=== PATIENT | male | born 1970 | race Caucasian/White ===

== ENCOUNTER 2016-07-28 06:03 | Day surgery (SDC) | END 2016-07-28 06:04 | disposition home or self-care (01) | CPT/HCPCS: 29881; 71010; A9270; J0690; J7120; J7613 ==

== ENCOUNTER 2017-02-14 15:13 | Emergency (ER) | payer MEDICAID ==
--- NOTE | 2017-02-14 16:20 | XRAY Preliminary Report ---
Exam: XR Forearm RT IMPRESSION: No acute disease. [facility] SITE ID: [id number]
--- NOTE | 2017-02-14 16:23 | XRAY Report ---
EXAM: RIGHT FOREARM RADIOGRAPHY EXAM DATE: 02/14/2017 04:03 PM. CLINICAL HISTORY: Trauma, pain. COMPARISON: None. TECHNIQUE: 2 views. FINDINGS: Bones: Tiny olecranon spur. No definite fracture or other bone lesion. Joints: Normal. No effusions or subluxations in the visualized wrist or elbow joints. Soft Tissues: Unremarkable. IMPRESSION: No acute disease. [facility] Referring Provider Line: [phone] SITE ID: [id number]
[2017-02-14] MEDS ORDERED: ACETAMINOPHEN 325 MG TABLET PO STA (16:58)
[2017-02-14] MEDS ORDERED: IBUPROFEN 400 MG TABLET PO STA (16:58)
[2017-02-14] MEDS ORDERED: ACETAMINOPHEN 325 MG TABLET PO ONE (17:04)
[2017-02-14] MEDS ORDERED: IBUPROFEN 400 MG TABLET PO ONE (17:04)
--- NOTE | 2017-02-14 17:14 | ED Physician Documentation ---
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 and swelling radial > ulnar no numbness or weakness occurred at home Review of Systems Musculoskeletal: reports: Extremity pain PD PAST MEDICAL HISTORY - Past Medical History Cardiovascular: Hypertension Respiratory: None Neuro: None Endocrine/Autoimmune: HyPOthyroidism GI: GERD : None HEENT: None Psych: None Musculoskeletal: None Derm: None - Past Surgical History Past Surgical History: Yes Ortho: ACL reconstruction - Present Medications Home Medications: Ambulatory Orders Medication Instructions Recorded Confirmed Chlorthalidone 25 mg PO DAILY 07/27/16 02/14/17 Levothyroxine [Synthroid] 25 mcg PO QDAC 07/27/16 02/14/17 Omeprazole 20 mg PO DAILY 07/27/16 02/14/17 Albuterol Sulfate [Proventil Hfa 1 - 2 puffs INH Q4H PRN 07/28/16 02/14/17 Inhaler] - Allergies Allergies/Adverse Reactions: Allergies Allergy/AdvReac Type Severity Reaction Status Date / Time No Known Drug Allergies Allergy Verified 02/14/17 16:34 - Social History Does the pt smoke?: Yes Smoking Status: Current every day smoker Does the pt drink ETOH?: No Does the pt have substance abuse?: No - Immunizations Immunizations are current?: No - POLST Patient has POLST: No PD ED PE NORMAL - Vitals Vital signs reviewed: Yes - Extremities Extremities: Other (R FA with swellign and TTP to distal radius region, MSV intact) Results - Vitals Vitals: Vital Signs - 24 hr 02/14/17 15:43 Temperature 36.6 C Heart Rate 85 Respiratory 18 Rate Blood Pressure 140/90 H O2 Saturation 99 Oxygen O2 Source Room air - Rads (name of study) FA Radiology: See rad report (neg) Departure - Departure Disposition: 01 Home, Self Care Clinical Impression: Crush injury arm Qualifiers: Encounter type: initial encounter Laterality: right Qualified Code(s): S47.1XXA - Crushing injury of right shoulder and upper arm, initial encounter Condition: Good Comments: The xray shows no fracture But you still have some crush injury to the muscles Recommend wearing the SHAWANDA and applying ice 20 min at a time and elevating to decrease the swelling Motrin and tylenol for the pain Wear the splint as needed for support and comfort And please follow up with your PMD to recheck your blood pressure Return if worse
[2017-02-14 17:33] VITALS: BP 149/100
== END 2017-02-14 18:59 | disposition home or self-care (01) ==
LOC: ED 15:13
DX: S57.81XA Crushing injury of right forearm, initial encounter (principal); W23.1XXA Caught, crushed, jammed, or pinched between stationary objects, initial encounter; I10 Essential (primary) hypertension; E03.9 Hypothyroidism, unspecified; K21.9 Gastro-esophageal reflux disease without esophagitis; F17.200 Nicotine dependence, unspecified, uncomplicated
CPT/HCPCS: 73090; 99283; A9270

== ENCOUNTER 2017-03-01 07:43 | Outpatient (CLI) | payer MEDICAID ==
[2017-03-01 11:03] LABS: HGB - HEMOGLOBIN 14.3 g/dL (14.0-18.0); MEAN CORPUSCULAR HEMOGLOBIN 30.6 pg (27.0-31.0); MEAN PLATELET VOLUME 9.4 fL (7.4-11.4); RED CELL DISTRIBUTION WIDTH 13.1 % (12.0-15.0); UNCORRECTED WHITE BLOOD COUNT 7.1 x10^3/uL; WHITE BLOOD COUNT 7.1 x10^3/uL (4.8-10.8)
[2017-03-01 11:05] LABS: BASOPHILS % (AUTO) 0.4 %; EOSINOPHILS # (AUTO) 0.2 10^3/uL (0.0-0.7); EOSINOPHILS % (AUTO) 2.3 %; HCT - HEMATOCRIT 42.2 % (42.0-52.0); LYMPHOCYTES # (AUTO) 2.7 10^3/uL (1.5-3.5); LYMPHOCYTES % (AUTO) 37.7 %; MONOCYTES # (AUTO) 0.5 10^3/uL (0.0-1.0); NEUTROPHILS # (AUTO) 3.7 10^3/uL (1.5-6.6); NEUTROPHILS % (AUTO) 52.6 %; RED BLOOD COUNT 4.69 10^6/uL (4.70-6.10)
[2017-03-01 11:20] LABS: ALBUMIN/GLOBULIN RATIO 1.2 (1.0-2.2); BILIRUBIN,TOTAL 0.6 mg/dL (0.2-1.0); BUN - BLOOD UREA NITROGEN 14 mg/dL (6-20); CALCIUM 8.8 mg/dL (8.5-10.3); CARBON DIOXIDE - CO2 24 mmol/L (21-32); CHLORIDE 108 mmol/L (101-111); CHOL/HDL RATIO 5.1 (<5.0); CHOLESTEROL 208 mg/dL; CREATININE 0.8 mg/dL (0.6-1.2); GFR - MDRD 104 (>89); GLUCOSE 156 mg/dL (70-100); HDL CHOLESTEROL 41 mg/dL; LDL/HDL RATIO 3.1 (<3.6); POTASSIUM 3.8 mmol/L (3.5-5.0); SODIUM 141 mmol/L (135-145); TOTAL PROTEIN 6.7 g/dL (6.7-8.2); TRIGLYCERIDES 202 mg/dL; VLDL CHOLESTEROL 40 mg/dL
[2017-03-01 11:48] LABS: THYROID STIMULATING HORMONE 2.13 uIU/mL (0.34-5.60)
== END 2017-03-01 07:44 | disposition home or self-care (01) ==
LOC: LAB.F 07:43
PROVIDERS: ATTEND Nurse Practitioner Family
DX: I10 Essential (primary) hypertension (principal); E78.5 Hyperlipidemia, unspecified; E03.8 Other specified hypothyroidism
CPT/HCPCS: 36415; 80050; 80061; 84439

== ENCOUNTER 2017-04-08 13:05 | Outpatient (CLI) | payer MEDICAID | END 2017-04-08 13:06 | disposition home or self-care (01) | LOC: RT 13:05 | PROVIDERS: ATTEND Nurse Practitioner Family | DX: R06.02 Shortness of breath (principal) | CPT/HCPCS: 94060 ==

== ENCOUNTER 2017-04-10 07:38 | Outpatient (CLI) | payer MEDICAID ==
[2017-04-10 14:02] LABS: BASOPHILS # (AUTO) 0.1 10^3/uL (0.0-0.1); BASOPHILS % (AUTO) 0.7 %; EOSINOPHILS # (AUTO) 0.2 10^3/uL (0.0-0.7); EOSINOPHILS % (AUTO) 1.7 %; HCT - HEMATOCRIT 43.6 % (42.0-52.0); HGB - HEMOGLOBIN 15.3 g/dL (14.0-18.0); LYMPHOCYTES # (AUTO) 3.7 10^3/uL (1.5-3.5); LYMPHOCYTES % (AUTO) 36.7 %; MEAN CORPUSCULAR HEMOGLOBIN 30.6 pg (27.0-31.0); MEAN CORPUSCULAR HGB CONC 35.1 g/dL (32.0-36.0); MEAN CORPUSCULAR VOLUME 87.2 fL (80.0-94.0); MEAN PLATELET VOLUME 9.3 fL (7.4-11.4); MONOCYTES # (AUTO) 0.8 10^3/uL (0.0-1.0); MONOCYTES % (AUTO) 7.5 %; NEUTROPHILS # (AUTO) 5.4 10^3/uL (1.5-6.6); NEUTROPHILS % (AUTO) 53.4 %; NUCLEATED RED BLOOD CELLS AUTO 0.1 /100WBC; UNCORRECTED WHITE BLOOD COUNT 10.1 x10^3/uL; WHITE BLOOD COUNT 10.1 x10^3/uL (4.8-10.8)
[2017-04-10 14:16] LABS: ALBUMIN/GLOBULIN RATIO 1.2 (1.0-2.2); BILIRUBIN,TOTAL 0.6 mg/dL (0.2-1.0); CALCIUM 9.5 mg/dL (8.5-10.3); CREATININE 0.9 mg/dL (0.6-1.2); HEMOGLOBIN A1C 1.24 g/dL; POTASSIUM 3.5 mmol/L (3.5-5.0); TOTAL PROTEIN 7.6 g/dL (6.7-8.2)
== END 2017-04-10 07:39 | disposition home or self-care (01) ==
LOC: LAB.F 07:38
PROVIDERS: ATTEND Nurse Practitioner Family
DX: Z01.818 Encounter for other preprocedural examination (principal); M25.561 Pain in right knee; I10 Essential (primary) hypertension
CPT/HCPCS: 36415; 80053; 83036; 85025

== ENCOUNTER 2017-04-12 10:56 | Outpatient (CLI) | payer MEDICAID | END 2017-04-12 10:57 | disposition home or self-care (01) | LOC: LAB.R 10:56 | PROVIDERS: ATTEND Nurse Practitioner Family | DX: Z01.818 Encounter for other preprocedural examination (principal) | CPT/HCPCS: 87081 ==

== ENCOUNTER 2017-04-12 11:04 | Outpatient (CLI) | payer MEDICAID | END 2017-04-12 11:05 | disposition home or self-care (01) | LOC: RT.S 11:04 | PROVIDERS: ATTEND Nurse Practitioner Family | DX: Z01.818 Encounter for other preprocedural examination (principal) | CPT/HCPCS: 87081; 93005 ==

== ENCOUNTER 2017-04-28 17:08 | Emergency (ER) | payer MEDICAID ==
[2017-04-28 17:21] VITALS: BP 113/79
[2017-04-28 17:38] LABS: BASOPHILS # (AUTO) 0.1 10^3/uL (0.0-0.1); BASOPHILS % (AUTO) 0.7 %; EOSINOPHILS # (AUTO) 0.1 10^3/uL (0.0-0.7); EOSINOPHILS % (AUTO) 0.7 %; LYMPHOCYTES # (AUTO) 3.5 10^3/uL (1.5-3.5); LYMPHOCYTES % (AUTO) 25.8 %; MEAN CORPUSCULAR HEMOGLOBIN 30.6 pg (27.0-31.0); MEAN CORPUSCULAR HGB CONC 35.1 g/dL (32.0-36.0); MEAN CORPUSCULAR VOLUME 87.2 fL (80.0-94.0); MEAN PLATELET VOLUME 8.1 fL (7.4-11.4); MONOCYTES # (AUTO) 1.2 10^3/uL (0.0-1.0); MONOCYTES % (AUTO) 8.7 %; NEUTROPHILS # (AUTO) 8.8 10^3/uL (1.5-6.6); NEUTROPHILS % (AUTO) 64.1 %; RED BLOOD COUNT 4.59 10^6/uL (4.70-6.10); RED CELL DISTRIBUTION WIDTH 12.4 % (12.0-15.0); UNCORRECTED WHITE BLOOD COUNT 13.8 x10^3/uL; WHITE BLOOD COUNT 13.8 x10^3/uL (4.8-10.8)
[2017-04-28 17:56] LABS: ALBUMIN/GLOBULIN RATIO 1.4 (1.0-2.2); BILIRUBIN,TOTAL 1.2 mg/dL (0.2-1.0); CALCIUM 9.2 mg/dL (8.5-10.3); CARBON DIOXIDE - CO2 25 mmol/L (21-32); CHLORIDE 92 mmol/L (101-111); CREATININE 2.9 mg/dL (0.6-1.2); GFR - MDRD 23 (>89); GLUCOSE 170 mg/dL (70-100); LIPASE 26 U/L (22-51); POTASSIUM 2.6 mmol/L (3.5-5.0); SALICYLATE < 6.0 mg/dL; SODIUM 135 mmol/L (135-145); TOTAL PROTEIN 7.8 g/dL (6.7-8.2)
[2017-04-28 18:01] LABS: ACETAMINOPHEN < 10 ug/mL (10-30)
[2017-04-28 18:19] LABS: BUN - BLOOD UREA NITROGEN 34 mg/dL (6-20)
[2017-04-28] MEDS ORDERED: SODIUM CHLORIDE 0.9% 1,000 ML IV ONE ×2 (18:30→18:49)
--- NOTE | 2017-04-28 18:36 | ED Physician Documentation ---
History of Present Illness - Stated complaint Stated Complaint: ingestion - Chief complaint Chief Complaint: General - History obtained from History obtained from: Patient - History of Present Illness Timing: Today, How many hours ago (2) Pain level max: 0 Pain level now: 0 - Additonal information Additional information: Patient is a 46-year-old male who states he was working underneath a car today when he had the antifreeze line break and spill over him. also ingested. States GI upset currently. Abd pain, nausea. States accidental. Not suicidal. Review of Systems Ten Systems: 10 systems reviewed and negative Constitutional: denies: Fever, Chills, Myalgias Ears: denies: Ear pain Nose: denies: Rhinorrhea / runny nose, Congestion GI: denies: Vomiting, Diarrhea, Hematemesis, Bloody / black stool Skin: denies: Rash Musculoskeletal: denies: Neck pain, Back pain Neurologic: denies: Focal weakness, Numbness, Headache Psychiatric: denies: Suicidal, Homicidal PD PAST MEDICAL HISTORY - Past Medical History Cardiovascular: Hypertension, High cholesterol Respiratory: Other Neuro: Peripheral neuropathy Endocrine/Autoimmune: Type 2 diabetes, HyPOthyroidism GI: GERD : None HEENT: None Psych: None Musculoskeletal: None Derm: None - Past Surgical History Past Surgical History: Yes Ortho: ACL reconstruction - Present Medications Home Medications: Ambulatory Orders Medication Instructions Recorded Confirmed Chlorthalidone 50 mg PO DAILY 07/27/16 04/21/17 Levothyroxine [Synthroid] 25 mcg PO DAILY 07/27/16 04/21/17 Omeprazole 20 mg PO DAILY 07/27/16 04/21/17 Albuterol Sulfate [Proventil Hfa 1 - 2 puffs INH Q4H PRN 07/28/16 04/21/17 Inhaler] Acetaminophen [Tylenol] 325 mg PO Q6H PRN 04/21/17 04/21/17 Atorvastatin Calcium 80 mg PO DAILY PM 04/21/17 04/21/17 Ibuprofen [Advil] 800 mg PO PRN 04/21/17 Lisinopril 5 mg PO DAILY 04/21/17 04/21/17 Metformin HCl 500 mg PO BID 04/21/17 04/21/17 Trazodone HCl 25 - 50 mg PO QPM PRN 04/21/17 04/21/17 - Allergies Allergies/Adverse Reactions: Allergies Allergy/AdvReac Type Severity Reaction Status Date / Time amlodipine AdvReac Unknown Verified 04/28/17 17:16 - Social History Does the pt smoke?: Yes Smoking Status: Light tobacco smoker Does the pt drink ETOH?: No Does the pt have substance abuse?: No - Immunizations Immunizations are current?: No - POLST Patient has POLST: No PD ED PE NORMAL - Vitals Vital signs reviewed: Yes - General General: Alert and oriented X 3, No acute distress, Well developed/nourished - HEENT HEENT: PERRL, Moist mucous membranes, Other (erythematous) - Neck Neck: Supple, no meningeal sign - Cardiac Cardiac: RRR - Respiratory Respiratory: Clear bilaterally - Abdomen Abdomen: Normal bowel sounds, Soft, Non tender, Non distended - Back Back: No spinal TTP - Derm Derm: Warm and dry - Neuro Neuro: Alert and oriented X 3 - Psych Psych: Normal mood, Normal affect Results - Vitals Vitals: Vital Signs - 24 hr 04/28/17 04/28/17 17:12 17:20 Temperature 36.4 C L Heart Rate 104 H 110 H Respiratory 22 16 Rate Blood Pressure 99/68 113/79 O2 Saturation 98 Oxygen O2 Source Room air - Labs Labs: Laboratory Tests 04/28/17 04/28/17 04/28/17 17:32 17:32 18:55 WBC 13.8 H RBC 4.59 L Hgb 14.0 Hct 40.0 L MCV 87.2 MCH 30.6 MCHC 35.1 RDW 12.4 Plt Count 379 MPV 8.1 Neut # 8.8 H Lymph # 3.5 [place] # 1.2 H Eos # 0.1 Baso # 0.1 Absolute Nucleated RBC 0.01 Nucleated RBC % 0.0 VBG pH VBG pCO2 VBG pO2 VBG HCO3 VBG Total CO2 VBG O2 Saturation VBG Base Excess Sodium 135 Potassium 2.6 L Chloride 92 L Carbon Dioxide 25 Anion Gap 18.0 H BUN 34 H Creatinine 2.9 H Estimated GFR (MDRD) 23 L Glucose 170 H Lactic Acid 1.2 Calcium 9.2 Total Bilirubin 1.2 H AST 74 H ALT 64 H Alkaline Phosphatase 62 Total Protein 7.8 Albumin 4.6 Globulin 3.2 Albumin/Globulin Ratio 1.4 Lipase 26 Salicylates < 6.0 Acetaminophen < 10 L Ethyl Alcohol < 5.0 04/28/17 18:55 WBC RBC Hgb Hct MCV MCH MCHC RDW Plt Count MPV Neut # Lymph # [place] # Eos # Baso # Absolute Nucleated RBC Nucleated RBC % VBG pH 7.425 H VBG pCO2 42.7 VBG pO2 56.2 H VBG HCO3 27.4 VBG Total CO2 28.7 VBG O2 Saturation 88.9 H VBG Base Excess 2.6 H Sodium Potassium Chloride Carbon Dioxide Anion Gap BUN Creatinine Estimated GFR (MDRD) Glucose Lactic Acid Calcium Total Bilirubin AST ALT Alkaline Phosphatase Total Protein Albumin Globulin Albumin/Globulin Ratio Lipase Salicylates Acetaminophen Ethyl Alcohol PD MEDICAL DECISION MAKING - ED course Complexity details: reviewed results, re-evaluated patient, considered differential, d/w patient, d/w family, d/w philatelic consultant ED course: Patient is a 46-year-old male with reported accidental ethylene glycol ingestion. Initial laboratory results reveal a metabolic acidosis with acute renal failure. Fomepizole is not available here. Discussed with [facility], Dr. kimble, emergency department graciously accepted in transfer at 1845. Jennifer from the transfer center confirms the bed. They do not recommend starting bicarb at this time. Patient is awake alert oriented. This document was made in part using voice recognition software. While efforts are made to proofread this document, sound alike and grammatical errors may occur. Departure - Departure Disposition: 02 Transfer Acute Care Hosp Clinical Impression: Metabolic acidosis Renal failure Qualifiers: Renal failure chronicity: acute Acute renal failure type: unspecified Qualified Code(s): N17.9 - Acute kidney failure, unspecified Ethylene glycol poisoning Qualifiers: Encounter type: initial encounter Injury intent: undetermined intent Qualified Code(s): T52.8X4A - Toxic effect of other organic solvents, undetermined, initial encounter Condition: Stable
[2017-04-28] MEDS ORDERED: POTASSIUM CHLOR 10 MEQ/100 ML 10 MEQ/100 ML BAG IV ONE ×3 (19:03→19:46)
[2017-04-28 19:06] LABS: VBG BASE EXCESS 2.6 mmol/L (-2 - +2); VBG OXYGEN SATURATION 88.9 % (60-80); VBG PH 7.425 (7.31-7.41); VBG TOTAL CO2 28.7 mmol/L (24-29)
[2017-04-28] MEDS ORDERED: PANTOPRAZOLE 40 MG VIAL IVP STA (19:22)
[2017-04-28] MEDS ORDERED: PANTOPRAZOLE 40 MG VIAL ONE (19:46)
== END 2017-04-28 20:00 | disposition short-term general hospital (02) ==
LOC: ED 17:08
DX: E87.2 Acidosis (principal); N17.9 Acute kidney failure, unspecified; T65.891A Toxic effect of other specified substances, accidental (unintentional), initial encounter; E11.42 Type 2 diabetes mellitus with diabetic polyneuropathy; I10 Essential (primary) hypertension; E03.9 Hypothyroidism, unspecified; E78.00 Pure hypercholesterolemia, unspecified; F17.200 Nicotine dependence, unspecified, uncomplicated
CPT/HCPCS: 36415; 80053; 80307; 80320; 80329; 82803; 83605; 83690; 83930; 85025; 96361; 96374; 96375; 99283; 99284; 99285

== ENCOUNTER 2017-07-31 09:26 | Emergency (ER) | payer MEDICAID ==
--- NOTE | 2017-07-31 09:58 | ED Physician Documentation ---
PD HPI NVD - Stated complaint Stated Complaint: VOMITING - Chief complaint Chief Complaint: Abd Pain - History obtained from History obtained from: Patient - History of Present Illness Timing - onset: How many days ago (few) Timing - duration: Days Timing - details: Gradual onset, Still present Associated symptoms: Loss of appetite. No: Fever, Abdominal pain, Near syncope / syncope, Weight loss Contributing factors: No: Sick contact, Bad food, Travel Worsened by: Eating Recently seen: Not recently seen (he had decided he wanted to be off his meds and stopped them/threw them out 2-3 months ago. Has not been on any since. Did not like the Metformin side effects. Other meds he was just "tired of taking them". Would like to resume them, except asking for substitute for the metformin.) Review of Systems Constitutional: reports: Myalgias, Fatigue. denies: Fever Nose: reports: Congestion. denies: Rhinorrhea / runny nose Throat: denies: Sore throat Cardiac: denies: Chest pain / pressure Respiratory: reports: Cough GI: reports: Nausea, Vomiting, Diarrhea (2-3 days). denies: Abdominal Pain Skin: denies: Rash Neurologic: reports: Generalized weakness. denies: Focal weakness, Numbness, Near syncope Psychiatric: reports: Depressed. denies: Suicidal, Anxiety, Insomnia Immunocompromised: denies: Immunocompromised PD PAST MEDICAL HISTORY - Past Medical History Cardiovascular: Hypertension, High cholesterol Respiratory: Other Neuro: Peripheral neuropathy Endocrine/Autoimmune: Type 2 diabetes, HyPOthyroidism GI: GERD : None HEENT: None Psych: None Musculoskeletal: None Derm: None - Past Surgical History Past Surgical History: Yes Ortho: ACL reconstruction - Present Medications Home Medications: Ambulatory Orders Medication Instructions Recorded Confirmed Chlorthalidone 50 mg PO DAILY 07/27/16 07/31/17 Omeprazole 20 mg PO DAILY 07/27/16 07/31/17 Acetaminophen [Tylenol] 325 mg PO Q6H PRN 04/21/17 07/31/17 Atorvastatin Calcium 80 mg PO DAILY PM 04/21/17 07/31/17 Ibuprofen [Advil] 800 mg PO PRN PRN 04/21/17 07/31/17 Metformin HCl 500 mg PO BID 04/21/17 07/31/17 Albuterol Sulfate [Proventil Hfa 1 - 2 puffs INH Q4H PRN #1 07/31/17 Inhaler] [email or web address] Chlorthalidone 25 mg PO DAILY #30 tablet 07/31/17 Cholecalciferol (Vitamin D3) 2,000 unit PO DAILY #30 capsule 07/31/17 [Vitamin D] Levothyroxine [Synthroid] 25 mcg PO DAILY #30 tablet 07/31/17 Lisinopril 5 mg PO DAILY #30 tablet 07/31/17 Omeprazole 20 mg PO DAILY #30 tablet. 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 He is lonely some as is staying away from the prior friends who are drug users. He does not get counseling nor have social/support groups. ) - Immunizations Immunizations are current?: No - POLST Patient has POLST: No PD ED PE NORMAL - Vitals Vital signs reviewed: Yes - General General: Alert and oriented X 3, Well developed/nourished - HEENT HEENT: PERRL, Ears normal, Pharynx benign. No: Moist mucous membranes - Neck Neck: Supple, no meningeal sign, No adenopathy - Cardiac Cardiac: RRR, No murmur - Respiratory Respiratory: Clear bilaterally - Abdomen Abdomen: Normal bowel sounds, Soft, Non tender, Non distended, No organomegaly - Male Male : Deferred - Rectal Rectal: Deferred - Back Back: No CVA TTP - Derm Derm: Normal color, Warm and dry - Extremities Extremities: No deformity, No tenderness to palpate, No edema, No calf tenderness / cord - Neuro Neuro: Alert and oriented X 3, No motor deficit, Normal speech - Psych Psych: Normal affect. No: Normal mood (somewhat depressed but denies suicidal ideation.) Results - Vitals Vitals: Oxygen O2 Source Room air - Labs Labs: Laboratory Tests 07/31/17 07/31/17 07/31/17 09:52 10:32 10:32 WBC 11.7 H RBC 5.61 Hgb 17.4 Hct 49.0 MCV 87.3 MCH 31.1 H MCHC 35.6 RDW 12.4 Plt Count 430 MPV 8.3 Neut # 6.9 H Lymph # 3.5 [place] # 1.1 H Eos # 0.1 Baso # 0.1 Absolute Nucleated RBC 0.01 Nucleated RBC % 0.1 Sodium 132 L Potassium 3.5 Chloride 93 L Carbon Dioxide 22 Anion Gap 17.0 H BUN 36 H Creatinine 1.7 H Estimated GFR (MDRD) 43 L Glucose 105 H POC Whole Bld Glucose 135 H Calcium 9.7 Magnesium 2.1 Total Bilirubin 0.7 AST 22 ALT 27 Alkaline Phosphatase 62 Total Protein 8.3 H Albumin 4.5 Globulin 3.8 Albumin/Globulin Ratio 1.2 Lipase 23 TSH Influenza A (Rapid) Influenza B (Rapid) Influenza Types A,B Ag 07/31/17 07/31/17 10:32 11:48 WBC RBC Hgb Hct MCV MCH MCHC RDW Plt Count MPV Neut # Lymph # [place] # Eos # Baso # Absolute Nucleated RBC Nucleated RBC % Sodium Potassium Chloride Carbon Dioxide Anion Gap BUN Creatinine Estimated GFR (MDRD) Glucose POC Whole Bld Glucose Calcium Magnesium Total Bilirubin AST ALT Alkaline Phosphatase Total Protein Albumin Globulin Albumin/Globulin Ratio Lipase TSH 3.25 Influenza A (Rapid) Negative Influenza B (Rapid) Negative Influenza Types A,B Ag - PD MEDICAL DECISION MAKING - ED course Complexity details: reviewed results, considered differential (sounds flu like and he is wanting to resume meds he had been off for 2-3 months. Will give Rx for them to bridge getting back to PMD. SW gave references for support groups. ) , d/w patient Departure - Departure Disposition: 01 Home, Self Care Clinical Impression: Vomiting Qualifiers: Vomiting type: unspecified Vomiting Intractability: non-intractable Nausea presence: with nausea Qualified Code(s): R11.2 - Nausea with vomiting, unspecified Hypertension Qualifiers: Hypertension type: unspecified Qualified Code(s): I10 - Essential (primary) hypertension Hypothyroidism Qualifiers: Hypothyroidism type: unspecified Qualified Code(s): E03.9 - Hypothyroidism, unspecified Condition: Stable Record reviewed to determine appropriate education?: Yes Prescriptions: Albuterol Sulfate [Proventil Hfa Inhaler] 1 - 2 puffs INH Q4H PRN #1 [email or web address] PRN Reason: Shortness Of Air/Wheezing Chlorthalidone 25 mg PO DAILY #30 tablet Cholecalciferol (Vitamin D3) [Vitamin D] 2,000 unit PO DAILY #30 capsule Levothyroxine [Synthroid] 25 mcg PO DAILY #30 tablet Lisinopril 5 mg PO DAILY #30 tablet Omeprazole 20 mg PO DAILY #30 tablet. Pioglitazone HCl 15 mg PO DAILY #30 tablet Trazodone HCl 25 mg PO QPM PRN #30 tablet PRN Reason: sleep Comments: Resume your prior medications. I get these from our database list of medications. Follow-up with group support and counseling regarding being off drugs. Good for you for not using any drugs and continue that. Drink lots of fluids. Some daily regular exercise. Also consider vitamin D is just a mild mood enhancer not antidepressant per se. Discharge Date/Time: 07/31/17 14:24
[2017-07-31] MEDS ORDERED: ONDANSETRON 4 MG/2 ML VIAL IVP STA (10:20)
[2017-07-31] MEDS ORDERED: MAG HYDROX/AL HYDROX/SIMETH 30 ML UDC PO STA (10:20)
[2017-07-31] MEDS ORDERED: FAMOTIDINE 20 MG/50 ML 50 ML IV ONE (10:20)
[2017-07-31] MEDS ORDERED: SODIUM CHLORIDE 0.9% 1,000 ML IV ONE (10:20)
[2017-07-31 10:37] LABS: BASOPHILS # (AUTO) 0.1 10^3/uL (0.0-0.1); BASOPHILS % (AUTO) 0.7 %; EOSINOPHILS # (AUTO) 0.1 10^3/uL (0.0-0.7); EOSINOPHILS % (AUTO) 1.2 %; HGB - HEMOGLOBIN 17.4 g/dL (14.0-18.0); LYMPHOCYTES # (AUTO) 3.5 10^3/uL (1.5-3.5); LYMPHOCYTES % (AUTO) 30.2 %; MEAN CORPUSCULAR HEMOGLOBIN 31.1 pg (27.0-31.0); MEAN CORPUSCULAR HGB CONC 35.6 g/dL (32.0-36.0); MEAN CORPUSCULAR VOLUME 87.3 fL (80.0-94.0); MEAN PLATELET VOLUME 8.3 fL (7.4-11.4); MONOCYTES # (AUTO) 1.1 10^3/uL (0.0-1.0); NEUTROPHILS # (AUTO) 6.9 10^3/uL (1.5-6.6); NEUTROPHILS % (AUTO) 58.9 %; PLT - PLATELET COUNT 430 10^3/uL (130-450); RED BLOOD COUNT 5.61 10^6/uL (4.70-6.10); RED CELL DISTRIBUTION WIDTH 12.4 % (12.0-15.0); WHITE BLOOD COUNT 11.7 x10^3/uL (4.8-10.8)
[2017-07-31 10:50] LABS: ALBUMIN 4.5 g/dL (3.2-5.5); ALBUMIN/GLOBULIN RATIO 1.2 (1.0-2.2); BILIRUBIN,TOTAL 0.7 mg/dL (0.2-1.0); CALCIUM 9.7 mg/dL (8.5-10.3); CREATININE 1.7 mg/dL (0.6-1.2); MAGNESIUM 2.1 mg/dL (1.7-2.8); TOTAL PROTEIN 8.3 g/dL (6.7-8.2)
[2017-07-31 11:56] VITALS: BP 132/94
== END 2017-07-31 14:24 | disposition home or self-care (01) ==
LOC: ED 09:26
DX: R11.2 Nausea with vomiting, unspecified (principal); I10 Essential (primary) hypertension; E03.9 Hypothyroidism, unspecified; E78.00 Pure hypercholesterolemia, unspecified; E11.42 Type 2 diabetes mellitus with diabetic polyneuropathy; F17.200 Nicotine dependence, unspecified, uncomplicated; Z79.84 Long term (current) use of oral hypoglycemic drugs
CPT/HCPCS: 36415; 80053; 83690; 83735; 84443; 85025; 87275; 87276; 96361; 96365; 96375; 99283; 99284; A9270

== ENCOUNTER 2017-08-22 14:47 | Emergency (ER) | payer OTHER, MEDICAID ==
[2017-08-22 14:58] VITALS: BP 146/111
--- NOTE | 2017-08-22 15:25 | ED Physician Documentation ---
PD HPI BACK INJURY - Stated complaint Stated Complaint: GLF-BACK PX - History obtained from History obtained from: Patient - History of Present Illness Location: Both, Lower Type of injury: Fall (he slipped at work and landed on the edge of a 2x12 plank. Struck lower back. Denies other injury.) Where injury occurred: Work Timing - onset: Today Timing - details: Abrupt onset Quality: Pain, Spasm, Sharp Worsened by: Moving, Palpating Associated symptoms: No: Fever, Weakness, Incontinent of urine Contributing factors: Work related. No: Anticoagulated, Prior back surgery Similar symptoms before: Has not had sx before Recently seen: Not recently seen Review of Systems Cardiac: denies: Chest pain / pressure, Palpitations Respiratory: denies: Dyspnea, Cough GI: denies: Abdominal Swelling, Nausea, Vomiting, Diarrhea : denies: Incontinent Neurologic: denies: Focal weakness, Numbness PD PAST MEDICAL HISTORY - Past Medical History Cardiovascular: Hypertension, High cholesterol Respiratory: Other Neuro: Peripheral neuropathy Endocrine/Autoimmune: Type 2 diabetes, HyPOthyroidism GI: GERD : None HEENT: None Psych: None Musculoskeletal: None Derm: None - Past Surgical History Past Surgical History: Yes Ortho: ACL reconstruction - Present Medications Home Medications: Ambulatory Orders Medication Instructions Recorded Confirmed Acetaminophen [Tylenol] 325 mg PO Q6H PRN 04/21/17 08/22/17 Ibuprofen [Advil] 800 mg PO PRN PRN 04/21/17 08/22/17 Metformin HCl 500 mg PO BID 04/21/17 08/22/17 Albuterol Sulfate [Proventil Hfa 1 - 2 puffs INH Q4H PRN #1 07/31/17 08/22/17 Inhaler] hfa.[email or web address] Levothyroxine [Synthroid] 25 mcg PO DAILY #30 tablet 07/31/17 08/22/17 Lisinopril 5 mg PO DAILY #30 tablet 07/31/17 08/22/17 Omeprazole 20 mg PO DAILY #30 tablet. 07/31/17 08/22/17 Dexamethasone [Decadron] 4 mg PO DAILY #5 tablet 08/22/17 HYDROcod/ACETAM 5/325 [[place] 5/325] 1 tab PO Q6H PRN #15 tablet 08/22/17 Methocarbamol [Robaxin] 500 mg PO Q6H PRN #25 tablet 08/22/17 - Allergies Allergies/Adverse Reactions: Allergies Allergy/AdvReac Type Severity Reaction Status Date / Time amlodipine AdvReac Cramps Verified 08/22/17 15:25 - Social History Does the pt smoke?: Yes Smoking Status: Current every day smoker Does the pt drink ETOH?: No Does the pt have substance abuse?: No - Immunizations Immunizations are current?: No - POLST Patient has POLST: No PD ED PE NORMAL - Vitals Vital signs reviewed: Yes - General General: Alert and oriented X 3, No acute distress (but is guarding ROM of the low back. ), Well developed/nourished - HEENT HEENT: Atraumatic - Neck Neck: Supple, no meningeal sign - Cardiac Cardiac: RRR, No murmur - Respiratory Respiratory: Clear bilaterally - Abdomen Abdomen: Normal bowel sounds, Soft, Non tender, Non distended - Rectal Rectal: Deferred - Back Back: No CVA TTP, No spinal TTP (tender in adjacent muscles of lumbar area. ) - Derm Derm: Normal color, Warm and dry - Extremities Extremities: No tenderness to palpate, Normal ROM s pain - Neuro Neuro: Alert and oriented X 3, No motor deficit, No sensory deficit, Normal speech, Other (2+ DTRs at knees) Eye Opening: Spontaneous Motor: Obeys Commands Verbal: Oriented GCS Score: 15 - Psych Psych: Normal mood Results - Vitals Vitals: Oxygen O2 Source Room air - Rads (name of study) lumbar xray Radiology: Prelim report reviewed, EMP read contemporaneously (no fractures. some calcifications of ligaments. ) PD MEDICAL DECISION MAKING - ED course Complexity details: reviewed results, considered differential (contusion without fractures), d/w patient Departure - Departure Disposition: 01 Home, Self Care Clinical Impression: Fall from slip, trip, or stumble Qualifiers: Encounter type: initial encounter Qualified Code(s): W01.0XXA - Fall on same level from slipping, tripping and stumbling without subsequent striking against object, initial encounter Contusion of lower back Qualifiers: Encounter type: initial encounter Qualified Code(s): S30.0XXA - Contusion of lower back and pelvis, initial encounter Condition: Stable Record reviewed to determine appropriate education?: Yes Instructions: ED Contusion Back Follow-Up: Araseli Cortes ARNP [Primary Care Provider] - Prescriptions: Dexamethasone [Decadron] 4 mg PO DAILY #5 tablet HYDROcod/ACETAM 5/325 [[place] 5/325] 1 tab PO Q6H PRN #15 tablet PRN Reason: Pain Methocarbamol [Robaxin] 500 mg PO Q6H PRN #25 tablet PRN Reason: Spasms Comments: Heat for the back to reduce spasming. Gentle range of motion. He can use Decadron anti-inflammatory which will not affect her kidney function. Tylenol if needed for pains. Add methocarbamol for spasms and stiffness and hydrocodone for pain. Off work for couple of days and then progressive activity after that as able. Forms: Activity restrictions Discharge Date/Time: 08/22/17 16:27
[2017-08-22] MEDS ORDERED: IBUPROFEN 600 MG TABLET PO STA (15:51)
[2017-08-22] MEDS ORDERED: ACETAMINOPHEN 325 MG TABLET PO STA (15:51)
--- NOTE | 2017-08-22 16:36 | XRAY Preliminary Report ---
Exam: XR LUMBAR SPINE 2 VIEW IMPRESSION: 1. No acute bony abnormality. 2. Moderate amount of diffuse idiopathic skeletal hyperostosis thoracolumbar spine. 3. Old mild wedging thoracolumbar junction. 4. Multilevel [id number]-[id number] degenerative changes greatest at L5-S1. [facility] SITE ID: [id number]
--- NOTE | 2017-08-22 16:42 | XRAY Report ---
EXAM: LUMBOSACRAL SPINE RADIOGRAPHY EXAM DATE: 08/22/2017 04:10 PM. CLINICAL HISTORY: Fall at work, struck lumbar area onto board edge. Back pain. COMPARISONS: None. TECHNIQUE: 3 views. FINDINGS: Alignment: Normal. No spondylolisthesis or scoliosis. Bones: Five [id number] lumbar vertebral bodies are present. Old mild anterior wedging T11, T12 and L1. Trabecular and cortical patterns are intact. Disks: Large confluent dystrophic calcifications extending anteriorly off the endplates L2 to L5. Similar amount of diffuse idiopathic skeletal hyperostosis evident in the inferior third of the thora cic spine. Moderate narrowing of the L5-S1 disk space. Mild narrowing of the rest of the disk spaces. Facets: Moderate degenerative changes L5-S1 facets bilaterally. Sacroiliac Joints: Unremarkable. Soft Tissues: Normal. The visualized bowel gas pattern is normal. IMPRESSION: 1. No acute bony abnormality. 2. Moderate amount of diffuse idiopathic skeletal hyperostosis thoracolumbar spine. 3. Old mild wedging thoracolumbar junction. 4. Multilevel [id number]-[id number] degenerative changes greatest at L5-S1. [facility] Referring Provider Line: [phone] SITE ID: [id number]
== END 2017-08-22 16:27 | disposition home or self-care (01) ==
LOC: ED 14:47
DX: S30.0XXA Contusion of lower back and pelvis, initial encounter (principal); W01.198A Fall on same level from slipping, tripping and stumbling with subsequent striking against other object, initial encounter; Y99.0 Civilian activity done for income or pay; I10 Essential (primary) hypertension; E03.9 Hypothyroidism, unspecified; E11.42 Type 2 diabetes mellitus with diabetic polyneuropathy; F17.200 Nicotine dependence, unspecified, uncomplicated; Z79.84 Long term (current) use of oral hypoglycemic drugs
CPT/HCPCS: 1040M; 72100; 99283; A9270

== ENCOUNTER 2017-10-19 07:40 | Outpatient (CLI) | payer MEDICAID | END 2017-10-19 07:41 | disposition critical access hospital (66) | LOC: EMS 07:40 | PROVIDERS: ATTEND Surgery | DX: R42 Dizziness and giddiness (principal) | CPT/HCPCS: A0425; A0427 ==

== ENCOUNTER 2017-10-19 08:10 | Emergency (ER) | payer MEDICAID ==
--- NOTE | 2017-10-19 08:18 | ED Physician Documentation ---
History of Present Illness - Stated complaint Stated Complaint: SOA - Chief complaint Chief Complaint: Resp - Additonal information Additional information: hx from pt and EMS 47 male has DM and COPD also hx renal failure 2/2 drug use but not using anymore was fine yesterday awoke this AM at 7 and felt weak all over near syncope with SOA no CP or palp no abd pain back pain called 911 given a newb and feels better prehospital EKG showed no acute ischemia pt also notes recent ella leg swelling no travel smokes Review of Systems Constitutional: denies: Fever, Chills Cardiac: denies: Chest pain / pressure, Palpitations Respiratory: reports: Dyspnea. denies: Cough GI: denies: Abdominal Pain Musculoskeletal: reports: Extremity swelling. denies: Back pain Endocrine: denies: Easy bruising / bleeding Immunocompromised: denies: Immunocompromised PD PAST MEDICAL HISTORY - Past Medical History Cardiovascular: Hypertension, High cholesterol Respiratory: Other Neuro: Peripheral neuropathy Endocrine/Autoimmune: Type 2 diabetes, HyPOthyroidism GI: GERD : None HEENT: None Psych: None Musculoskeletal: None Derm: None - Past Surgical History Past Surgical History: Yes Ortho: ACL reconstruction - Present Medications Home Medications: Ambulatory Orders Medication Instructions Recorded Confirmed Acetaminophen [Tylenol] 325 mg PO Q6H PRN 04/21/17 08/22/17 Ibuprofen [Advil] 800 mg PO PRN PRN 04/21/17 08/22/17 Metformin HCl 500 mg PO BID 04/21/17 08/22/17 Albuterol Sulfate [Proventil Hfa 1 - 2 puffs INH Q4H PRN #1 07/31/17 08/22/17 Inhaler] hfa.aer.ad Levothyroxine [Synthroid] 25 mcg PO DAILY #30 tablet 07/31/17 08/22/17 Lisinopril 5 mg PO DAILY #30 tablet 07/31/17 08/22/17 Omeprazole 20 mg PO DAILY #30 tablet. 07/31/17 08/22/17 Dexamethasone [Decadron] 4 mg PO DAILY #5 tablet 08/22/17 HYDROcod/ACETAM 5/325 [[place] 5/325] 1 tab PO Q6H PRN #15 tablet 08/22/17 Methocarbamol [Robaxin] 500 mg PO Q6H PRN #25 tablet 08/22/17 - Allergies Allergies/Adverse Reactions: Allergies Allergy/AdvReac Type Severity Reaction Status Date / Time amlodipine AdvReac Cramps Verified 08/22/17 15:25 - Social History Does the pt smoke?: Yes Smoking Status: Current every day smoker Does the pt drink ETOH?: No Does the pt have substance abuse?: No - Immunizations Immunizations are current?: No - POLST Patient has POLST: No PD ED PE NORMAL - Vitals Vital signs reviewed: Yes - General General: Alert and oriented X 3 - HEENT HEENT: PERRL - Neck Neck: Supple, no meningeal sign - Cardiac Cardiac: RRR - Respiratory Respiratory: No respiratory distress, Clear bilaterally - Derm Derm: Normal color - Extremities Extremities: No tenderness to palpate, Other (mimnimal symm edema) - Neuro Neuro: Alert and oriented X 3 Eye Opening: Spontaneous Motor: Obeys Commands Verbal: Oriented GCS Score: 15 Results - Vitals Vitals: Vital Signs - 24 hr 10/19/17 08:12 Temperature 36.5 C Heart Rate 90 Respiratory 18 Rate Blood Pressure 140/94 H O2 Saturation 97 Oxygen O2 Source Room air - EKG (time done) 0814 Rate: Rate (enter#) Rhythm: NSR [place]: Normal Intervals: Normal MT QRS: Normal Ischemia: Other (isolated Q in III, concave ST elev precordial lead c/w repol) - Labs Labs: Laboratory Tests 10/19/17 10/19/17 10/19/17 08:34 08:34 08:34 WBC 10.0 RBC 4.87 Hgb 14.9 Hct 43.5 MCV 89.3 MCH 30.6 MCHC 34.2 RDW 13.4 Plt Count 343 MPV 8.1 Neut # 6.4 Lymph # 2.4 Bibb # 0.9 Eos # 0.1 Baso # 0.1 Absolute Nucleated RBC 0.00 Nucleated RBC % 0.0 D-Dimer Sodium 133 L Potassium 4.0 Chloride 103 Carbon Dioxide 24 Anion Gap 6.0 BUN 15 Creatinine 0.8 Estimated GFR (MDRD) 103 Glucose 148 H Calcium 8.9 Troponin I < 0.04 B-Natriuretic Peptide 10/19/17 10/19/17 08:34 08:34 WBC RBC Hgb Hct MCV MCH MCHC RDW Plt Count MPV Neut # Lymph # Bibb # Eos # Baso # Absolute Nucleated RBC Nucleated RBC % D-Dimer < 200.0 L Sodium Potassium Chloride Carbon Dioxide Anion Gap BUN Creatinine Estimated GFR (MDRD) Glucose Calcium Troponin I B-Natriuretic Peptide 20 - Rads (name of study) CXR Radiology: See rad report (NACPD) PD MEDICAL DECISION MAKING - ED course ED course: soa and weak.near syncope that got better with neb en route feels fine in ED EKG s ischemia and trop X 1 neg - no CP etc so do not feels needs to stay for serial trops neg BNP and no CHF on CXR nl renal fxn now no pna will dc Departure - Departure Disposition: 01 Home, Self Care Clinical Impression: Dyspnea Qualifiers: Dyspnea type: unspecified Qualified Code(s): R06.00 - Dyspnea, unspecified Condition: Good Instructions: ED Dyspnea Shortness of Breath Comments: All your tests came back fine The xray did not show pneumonia, a collapsed lung or congestive heart failure The EKG and blood work do not suggest a heart problem Your not anemic and your kidney function is fine. Since you got better with the nebulizer treatment and feel fine now, it is OK for you to go home Please follow up with your PMD as needed Return to the ED if worse Forms: Activity restrictions
[2017-10-19 08:41] LABS: BASOPHILS # (AUTO) 0.1 10^3/uL (0.0-0.1); BASOPHILS % (AUTO) 0.8 %; EOSINOPHILS # (AUTO) 0.1 10^3/uL (0.0-0.7); EOSINOPHILS % (AUTO) 1.3 %; HGB - HEMOGLOBIN 14.9 g/dL (14.0-18.0); LYMPHOCYTES # (AUTO) 2.4 10^3/uL (1.5-3.5); LYMPHOCYTES % (AUTO) 24.3 %; MEAN CORPUSCULAR HEMOGLOBIN 30.6 pg (27.0-31.0); MEAN CORPUSCULAR HGB CONC 34.2 g/dL (32.0-36.0); MEAN CORPUSCULAR VOLUME 89.3 fL (80.0-94.0); MEAN PLATELET VOLUME 8.1 fL (7.4-11.4); MONOCYTES # (AUTO) 0.9 10^3/uL (0.0-1.0); MONOCYTES % (AUTO) 8.9 %; NEUTROPHILS # (AUTO) 6.4 10^3/uL (1.5-6.6); NEUTROPHILS % (AUTO) 64.7 %; PLT - PLATELET COUNT 343 10^3/uL (130-450); RED BLOOD COUNT 4.87 10^6/uL (4.70-6.10); RED CELL DISTRIBUTION WIDTH 13.4 % (12.0-15.0)
--- NOTE | 2017-10-19 08:43 | XRAY Report ---
EXAM: CHEST RADIOGRAPHY EXAM DATE: 10/19/2017 08:29 AM. CLINICAL HISTORY: SOA. Dizziness. COMPARISON: 07/28/2016. TECHNIQUE: 2 views. FINDINGS: Lungs/Pleura: No focal opacities evident. No pleural effusion. No pneumothorax. Normal volumes. Mediastinum: Heart and mediastinal contours are unremarkable. Other: There is borderline anterior compression fracture in the T11. IMPRESSION: Negative 2-view chest radiography. [facility] Referring Provider Line: [phone] SITE ID: [id number]
--- NOTE | 2017-10-19 08:43 | XRAY Preliminary Report ---
Exam: XR CHEST 2 VIEW X-RAY IMPRESSION: Negative 2-view chest radiography. [facility] SITE ID: [id number]
[2017-10-19 08:54] LABS: CALCIUM 8.9 mg/dL (8.5-10.3); CREATININE 0.8 mg/dL (0.6-1.2)
[2017-10-19 09:37] VITALS: BP 150/108
== END 2017-10-19 09:35 | disposition home or self-care (01) ==
LOC: EDUNIT# → ED 08:10
DX: R06.00 Dyspnea, unspecified (principal); R94.31 Abnormal electrocardiogram [ECG] [EKG]; I10 Essential (primary) hypertension; E11.42 Type 2 diabetes mellitus with diabetic polyneuropathy; E78.00 Pure hypercholesterolemia, unspecified; E03.9 Hypothyroidism, unspecified; F17.200 Nicotine dependence, unspecified, uncomplicated; Z79.84 Long term (current) use of oral hypoglycemic drugs
CPT/HCPCS: 36415; 71046; 80048; 83880; 84484; 85025; 85379; 93005; 99284

== ENCOUNTER 2018-05-14 02:57 | Emergency (ER) | payer MEDICAID ==
[2018-05-14 03:06] VITALS: BP 178/124
--- NOTE | 2018-05-14 03:09 | ED Physician Documentation ---
PD HPI SKIN - Stated complaint Stated Complaint: FACE LAC - Chief complaint Chief Complaint: Wound - History obtained from History obtained from: Patient - History of Present Illness Timing - onset: How many days ago (4) Timing - duration: Days (4) Timing - details: Gradual onset Pain level now: 4 Location: Face Quality / character: Painful, Raised, Draining Recently seen: Not recently seen - Additional information Additional information: cut himself shaving 4 days ago (right jawline) and has had gradually increasing pain and swelling in this area since then. He was able to express pus from this lesion yesterday and says there appeared to be an ingrown hair that was expressed with the pus. Review of Systems Constitutional: denies: Fever Skin: reports: Rash PD PAST MEDICAL HISTORY - Past Medical History Cardiovascular: Hypertension, High cholesterol Respiratory: Other Endocrine/Autoimmune: Type 2 diabetes, HyPOthyroidism GI: GERD : None HEENT: None Psych: None Musculoskeletal: None Derm: None - Past Surgical History Past Surgical History: Yes Ortho: ACL reconstruction - Present Medications Home Medications: Ambulatory Orders Medication Instructions Recorded Confirmed Acetaminophen [Tylenol] 325 mg PO Q6H PRN 04/21/17 08/22/17 Ibuprofen [Advil] 800 mg PO PRN PRN 04/21/17 08/22/17 Metformin HCl 500 mg PO BID 04/21/17 08/22/17 Albuterol Sulfate [Proventil Hfa 1 - 2 puffs INH Q4H PRN #1 07/31/17 08/22/17 Inhaler] hfa.aer.ad Levothyroxine [Synthroid] 25 mcg PO DAILY #30 tablet 07/31/17 08/22/17 Lisinopril 5 mg PO DAILY #30 tablet 07/31/17 08/22/17 Omeprazole 20 mg PO DAILY #30 tablet. 07/31/17 08/22/17 Dexamethasone [Decadron] 4 mg PO DAILY #5 tablet 08/22/17 HYDROcod/ACETAM 5/325 [[place] 5/325] 1 tab PO Q6H PRN #15 tablet 08/22/17 Methocarbamol [Robaxin] 500 mg PO Q6H PRN #25 tablet 08/22/17 Cephalexin [Keflex] 500 mg PO Q6HR #39 capsule 05/14/18 Sulfamethox/Trimeth 800/160 1 each PO BID #19 tablet 05/14/18 [Bactrim Ds 800/160] - Allergies Allergies/Adverse Reactions: Allergies Allergy/AdvReac Type Severity Reaction Status Date / Time amlodipine AdvReac Cramps Verified 05/14/18 03:06 - Social History Does the pt smoke?: Yes Smoking Status: Current every day smoker Does the pt drink ETOH?: No Does the pt have substance abuse?: No - Immunizations Immunizations are current?: No - POLST Patient has POLST: No PD ED PE NORMAL - Vitals Vital signs reviewed: Yes - General General: Alert and oriented X 3, No acute distress, Well developed/nourished PD ED PE EXPANDED - HEENT HEENT Visual: 1 - swelling (firm nodularity but no fluctuance or discharge; confluent erythema), tenderness Results - Vitals Vitals: Vital Signs - 24 hr 05/14/18 03:03 Temperature 36.2 C L Heart Rate 104 H Respiratory 18 Rate Blood Pressure 178/124 H O2 Saturation 97 Oxygen O2 Source Room air PD MEDICAL DECISION MAKING - ED course Complexity details: considered differential, d/w patient Departure - Departure Disposition: 01 Home, Self Care Clinical Impression: Cellulitis, face Condition: Good Instructions: ED Cellulitis Facial Follow-Up: Araseli Cortes ARNP [Primary Care Provider] - (5-7 days for recheck of the infection) Prescriptions: Cephalexin [Keflex] 500 mg PO Q6HR #39 capsule Sulfamethox/Trimeth 800/160 [Bactrim Ds 800/160] 1 each PO BID #19 tablet Discharge Date/Time: 05/14/18 03:38
[2018-05-14] MEDS ORDERED: SULFAMETH/TRIMETH DS 800/160 MG TABLET PO STA (03:30)
[2018-05-14] MEDS ORDERED: cephALEXin 250 MG CAPSULE PO STA (03:31)
== END 2018-05-14 03:38 | disposition home or self-care (01) ==
LOC: ED 02:57
DX: L03.211 Cellulitis of face (principal); I10 Essential (primary) hypertension; E78.00 Pure hypercholesterolemia, unspecified; E03.9 Hypothyroidism, unspecified; F17.200 Nicotine dependence, unspecified, uncomplicated; E11.9 Type 2 diabetes mellitus without complications
CPT/HCPCS: 99283; A9270

== ENCOUNTER 2018-07-01 22:01 | Emergency (ER) | payer MEDICAID ==
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
[2018-07-01 22:21] LABS: BASOPHILS # (AUTO) 0.1 10^3/uL (0.0-0.1); BASOPHILS % (AUTO) 0.7 %; EOSINOPHILS # (AUTO) 0.2 10^3/uL (0.0-0.7); EOSINOPHILS % (AUTO) 1.4 %; LYMPHOCYTES # (AUTO) 2.9 10^3/uL (1.5-3.5); LYMPHOCYTES % (AUTO) 22.5 %; MEAN CORPUSCULAR HEMOGLOBIN 30.7 pg (27.0-31.0); MEAN CORPUSCULAR HGB CONC 34.3 g/dL (32.0-36.0); MEAN CORPUSCULAR VOLUME 89.5 fL (80.0-94.0); MONOCYTES # (AUTO) 1.1 10^3/uL (0.0-1.0); MONOCYTES % (AUTO) 8.1 %; NEUTROPHILS # (AUTO) 8.8 10^3/uL (1.5-6.6); NEUTROPHILS % (AUTO) 67.3 %; PLT - PLATELET COUNT 372 10^3/uL (130-450); RED BLOOD COUNT 4.89 10^6/uL (4.70-6.10); RED CELL DISTRIBUTION WIDTH 13.1 % (12.0-15.0); WHITE BLOOD COUNT 13.1 x10^3/uL (4.8-10.8)
[2018-07-01] MEDS ORDERED: IOVERSOL 320 100 ML VIAL IVP ONE ×2 (22:31→23:37)
[2018-07-01 22:35] LABS: ALBUMIN 4.1 g/dL (3.2-5.5); ALBUMIN/GLOBULIN RATIO 1.2 (1.0-2.2); BILIRUBIN,TOTAL 0.5 mg/dL (0.2-1.0); CALCIUM 9.4 mg/dL (8.5-10.3); CREATININE 1.3 mg/dL (0.6-1.2); TOTAL PROTEIN 7.6 g/dL (6.7-8.2)
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
[2018-07-02 00:31] LABS: BILIRUBIN,URINE NEGATIVE (NEGATIVE); GLUCOSE, URINE (UA) 100 mg/dL (NEGATIVE); KETONES,URINE (UA) NEGATIVE (NEGATIVE); LEUKOCYTE ESTERASE, URINE NEGATIVE (NEGATIVE); NITRITE,URINE NEGATIVE (NEGATIVE); OCCULT BLOOD,URINE NEGATIVE (NEGATIVE); PH,URINE 6.5 PH (5.0-7.5); PROTEIN,URINE NEGATIVE (NEGATIVE); UROBILINOGEN,URINE 0.2 (NORMAL) E.U./dL (NORMAL)
[2018-07-02 00:33] LABS: CLARITY,URINE CLEAR (CLEAR)
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
[2018-07-02] MEDS ORDERED: oxyCODONE 5 MG TABLET PO STA (00:42)
[2018-07-02] MEDS ORDERED: oxyCODONE/ACET 5/325 Prepack 4 PO STA (00:49)
[2018-07-02 01:07] VITALS: BP 174/113
== END 2018-07-02 01:30 | disposition home or self-care (01) ==
LOC: ED 22:01
DX: S22.32XA Fracture of one rib, left side, initial encounter for closed fracture (principal); S60.221A Contusion of right hand, initial encounter; V57.0XXA Driver of pick-up truck or van injured in collision with fixed or stationary object in nontraffic accident, initial encounter; Y92.410 Unspecified street and highway as the place of occurrence of the external cause; I10 Essential (primary) hypertension; E11.9 Type 2 diabetes mellitus without complications; Z79.84 Long term (current) use of oral hypoglycemic drugs; F17.200 Nicotine dependence, unspecified, uncomplicated
CPT/HCPCS: 36415; 70450; 71101; 72132; 74177; 80053; 81003; 83690; 85025; 99284; 99285; A9270; Q9967; 81001; 87086

== ENCOUNTER 2018-08-16 18:23 | Emergency (ER) | payer MEDICAID ==
[2018-08-16] MEDS ORDERED: HYDROmorphone 1 MG/ML CARPUJECT IVP STA ×2 (18:27→20:27)
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
[2018-08-16] MEDS: SODIUM CHLORIDE 0.9% 1,000 ML IV ONE ×2 (18:32→18:39)
[2018-08-16] MEDS ORDERED: IOVERSOL 320 100 ML VIAL IVP ONE ×2 (18:33→19:45)
[2018-08-16 18:44] LABS: BASOPHILS # (AUTO) 0.1 10^3/uL (0.0-0.1); BASOPHILS % (AUTO) 1.1 %; EOSINOPHILS # (AUTO) 0.2 10^3/uL (0.0-0.7); EOSINOPHILS % (AUTO) 1.4 %; HGB - HEMOGLOBIN 14.8 g/dL (14.0-18.0); LYMPHOCYTES # (AUTO) 4.1 10^3/uL (1.5-3.5); LYMPHOCYTES % (AUTO) 37.8 %; MEAN CORPUSCULAR HEMOGLOBIN 30.5 pg (27.0-31.0); MEAN CORPUSCULAR HGB CONC 34.2 g/dL (32.0-36.0); MEAN CORPUSCULAR VOLUME 89.1 fL (80.0-94.0); MEAN PLATELET VOLUME 8.1 fL (7.4-11.4); MONOCYTES # (AUTO) 0.9 10^3/uL (0.0-1.0); MONOCYTES % (AUTO) 8.7 %; NEUTROPHILS # (AUTO) 5.5 10^3/uL (1.5-6.6); PLT - PLATELET COUNT 384 10^3/uL (130-450); RED BLOOD COUNT 4.84 10^6/uL (4.70-6.10); RED CELL DISTRIBUTION WIDTH 13.1 % (12.0-15.0); WHITE BLOOD COUNT 10.7 x10^3/uL (4.8-10.8)
[2018-08-16 18:46] LABS: ALKALINE PHOSPHATASE 85 IU/L (42-121); ALT ALANINE AMINOTRANSFERASE 50 IU/L (10-60); AST ASPARTATE AMINOTRANSFERASE 37 IU/L (10-42); BILIRUBIN,TOTAL 0.5 mg/dL (0.2-1.0); BUN - BLOOD UREA NITROGEN 17 mg/dL (6-20); CALCIUM 9.7 mg/dL (8.5-10.3); CARBON DIOXIDE - CO2 23 mmol/L (21-32); CHLORIDE 101 mmol/L (101-111); CREATININE 1.2 mg/dL (0.6-1.2); GFR - MDRD 65 (>89); GLUCOSE 195 mg/dL (70-100); LIPASE 33 U/L (22-51); SODIUM 137 mmol/L (135-145); TOTAL PROTEIN 7.9 g/dL (6.7-8.2)
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
--- NOTE | 2018-08-16 19:59 | CT Report ---
Reason: calcaneal frx Procedure Date: 08/16/2018 Accession Number: [id number] / [id number] Procedure: CT - Lower Extremity Left W/O CPT Code: FULL RESULT: EXAM: LEFT ANKLE/HINDFOOT CT WITHOUT CONTRAST EXAM DATE: 08/16/2018 07:43 PM. CLINICAL HISTORY: Calcaneal frx. COMPARISON: 08/16/2018 left ankle radiographs. TECHNIQUE: Thin-section axial images were acquired of the ankle/hindfoot without contrast. Post-processing: Coronal and sagittal reformats. Other: None. In accordance with CT protocol optimization, one or more of the following dose reduction techniques were utilized for this exam: automated exposure control, adjustment of mA and/or KV based on patient size, or use of iterative reconstructive technique. FINDINGS: Bones: Extensively comminuted fracture of the calcaneus involving the calcaneal tuberosity, with extension through the posterior and middle subtalar articulations, the plantar surface of the calcaneus, anteriorly through to the articulation with the cuboid, and through the peroneal tubercle. There is also a minimally displaced fracture of the anterior margin of the tibial plafond. No additional fractures. Small Achilles insertional enthesophyte and plantar calcaneal heel spur. Joints: Multiple punctate intra-articular bodies within the tibiotalar and subtalar joints posteriorly. Musculature: Normal. No fatty atrophy. Other: No tendon entrapment. Soft tissue swelling at the plantar aspect of the heel. IMPRESSION: 1. Extensively comminuted fracture of the calcaneus. 2. Minimally displaced fracture of the anterior margin of the tibial plafond. RADIA
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
[2018-08-16 20:14] LABS: BILIRUBIN,URINE NEGATIVE (NEGATIVE); GLUCOSE, URINE (UA) 100 mg/dL (NEGATIVE); KETONES,URINE (UA) NEGATIVE (NEGATIVE); LEUKOCYTE ESTERASE, URINE NEGATIVE (NEGATIVE); NITRITE,URINE NEGATIVE (NEGATIVE); OCCULT BLOOD,URINE NEGATIVE (NEGATIVE); PH,URINE 6.5 PH (5.0-7.5); PROTEIN,URINE NEGATIVE (NEGATIVE); UROBILINOGEN,URINE 0.2 (NORMAL) E.U./dL (NORMAL)
[2018-08-16 20:16] LABS: CLARITY,URINE CLEAR (CLEAR)
--- NOTE | 2018-08-16 20:17 | XRAY Report ---
Reason: wrist inj Procedure Date: 08/16/2018 Accession Number: [id number] / [id number] Procedure: XR - Wrist 4 View LT CPT Code: FULL RESULT: EXAM: LEFT WRIST RADIOGRAPHY EXAM DATE: 08/16/2018 07:58 PM. CLINICAL HISTORY: Wrist inj. COMPARISON: None. TECHNIQUE: 4 views. FINDINGS: Bones: No fractures or bone lesions. Joints: No dislocation. No significant degenerative disease. Soft Tissues: No focal soft tissue abnormalities. IMPRESSION: Negative wrist radiography. RADIA
[2018-08-16 21:42] VITALS: BP 156/113
--- NOTE | 2018-08-17 08:56 | ED Physician Documentation ---
ED Addendum - Addendum Addendum: 08/17/18 08:56 I personally fashioned a well padded bulky neumann splint to the LLE prior to transport.
== END 2018-08-16 21:46 | disposition short-term general hospital (02) ==
LOC: ED 18:23
DX: S92.002A Unspecified fracture of left calcaneus, initial encounter for closed fracture (principal); S13.9XXA Sprain of joints and ligaments of unspecified parts of neck, initial encounter; S63.502A Unspecified sprain of left wrist, initial encounter; W14.XXXA Fall from tree, initial encounter; I10 Essential (primary) hypertension; E03.9 Hypothyroidism, unspecified; E78.00 Pure hypercholesterolemia, unspecified; E11.9 Type 2 diabetes mellitus without complications; Z79.84 Long term (current) use of oral hypoglycemic drugs; F17.200 Nicotine dependence, unspecified, uncomplicated
CPT/HCPCS: 36415; 70450; 71260; 72125; 73110; 73590; 73610; 73700; 74177; 80053; 80320; 81003; 83690; 85025; 96374; 96376; 99284; J1170; Q9967; 81001; 87086

== ENCOUNTER 2018-08-16 21:48 | Outpatient (CLI) | payer MEDICAID | END 2018-08-16 21:49 | disposition home or self-care (01) | LOC: EMS 21:48 | PROVIDERS: ATTEND Surgery | DX: S92.002A Unspecified fracture of left calcaneus, initial encounter for closed fracture (principal); S92.302A Fracture of unspecified metatarsal bone(s), left foot, initial encounter for closed fracture; W17.89XA Other fall from one level to another, initial encounter; Y93.H3 Activity, building and construction; Y92.007 Garden or yard of unspecified non-institutional (private) residence as the place of occurrence of the external cause; Y99.8 Other external cause status | CPT/HCPCS: A0425; A0426 ==